=== PATIENT | female | born 1945 | race Caucasian/White ===

== ENCOUNTER 2020-04-13 15:37 | Inpatient (IN) | payer MEDICARE ==
[~2020-04-13 15:37] MED LIST: ACTOS15 MG PO; ALLOPURINOL 10100 MG PO; CEFDINIR300 MG PO; CIPROFLOXACIN500 M1 PO; COMPAZINE 5MG TA5 MG PO; ELAVIL50 MG PO; GABAPENTIN300 MG PO; GLIPIZIDE 5 MG (5 MG PO; LASIX20 MG PO; LASIX40 MG PO; LEVOTHYROXINE75 MC1 PO; LIPITOR 10MG TA10 MG PO; LOPRESSOR25 MG PO; METFORMIN HCL500 M3 PO; PRAMIPEXOLE ER3 MG PO; VENLAFAXINE HC150 MG PO; VENLAFAXINE HCL75 M1 PO; VOLTAREN **OUT50 MG PO; XARELTO15 MG PO; XARELTO20 MG PO
[2020-04-13 16:59] LABS: BASOPHIL 0.4 % (0-2); EOSINOPHIL 1.8 % (0-7); HCT 44.4 % (37.0-47.0); HGB 14.2 g/dl (12.5-16.0); MCH 28.7 pg (25.0-31.0); MCV 89.9 fL (78.0-100.0); MPV 9.7 fL (6.0-9.5); NRBC 0; PLT 327 K/uL (150-400); RBC 4.94 M/uL (4.20-5.40); RDW 13.4 % (11.5-14.0); WBC 10.5 K/uL (4.0-10.5)
[2020-04-13 17:17] LABS: INR 1.2 (0.9-1.2); PROTHROMBIN TIME 14.4 SECONDS (11.4-13.6); PTT 28.1 SECONDS (22.2-34.7)
[2020-04-13 17:18] LABS: D-DIMER 0.92 ug/mLFEU (0.00-0.41)
[2020-04-13 17:37] LABS: ALBUMIN 3.4 g/dL (3.4-5.0); BILIRUBIN - TOTAL 0.3 mg/dL (0.2-1.0); C-REACTIVE PROTEIN 3.1 mg/dL (<=0.90); CREATININE 0.74 mg/dL (0.51-0.95); GLOBULIN (CALCULATION) 3.5 g/dL; LACTIC ACID 1.9 mmol/L (0.4-1.9); POTASSIUM 4.5 mmol/L (3.5-5.1); TOTAL PROTEIN 6.9 g/dL (6.4-8.2)
--- NOTE | 2020-04-13 23:31 | NUR ---
PT ARRIVED TO TCU, PT WAS ANXIOOUS AT FIRST BUT HAS APPEARED TO HAVE SETTLED DOWN SOME. PT KEEPS ASKING FOR SLEEPING MEDICATION, I HAVE STATED WE ARE AWAITING THE DR TO SEE HER. WILL CONTINUE TO MONITOR
[2020-04-13] MEDS ORDERED: XARELTO10 MG PO (23:35)
[2020-04-13] MEDS ORDERED: LOPRESSOR25 MG PO (23:36)
[2020-04-13] MEDS ORDERED: MAG-OXIDE 400M400 MG PO (23:36)
[2020-04-13] MEDS ORDERED: MIRAPEX0.25 MG PO (23:37)
[2020-04-13] MEDS ORDERED: COMPAZINE10 MG PO (23:38)
[2020-04-13] MEDS ORDERED: ALLOPURINOL100 MG PO (23:38)
[2020-04-13] MEDS ORDERED: TRAZODONE HCL150 MG PO (23:40)
[2020-04-13] MEDS ORDERED: GLUCOTROL5 MG PO (23:40)
[2020-04-13] MEDS ORDERED: NEURONTIN300 MG PO (23:41)
[2020-04-13] MEDS ORDERED: VENLAFAXINE HC150 M1 PO (23:45)
[2020-04-13] MEDS ORDERED: MELATONIN5 M2 PO (23:48)
[2020-04-13] MEDS ORDERED: PIOGLITAZONE HC15 MG PO (23:48)
[2020-04-13] MEDS ORDERED: VENLAFAXINE HCL75 M2 PO (23:49)
[2020-04-13] MEDS ORDERED: SYNTHROID75 MCG PO (23:50)
[2020-04-13] MEDS ORDERED: VOLTAREN **OUT50 MG PO (23:51)
[2020-04-13] MEDS ORDERED: ELAVIL50 MG PO (23:51)
[2020-04-13] MEDS ORDERED: METFORMIN HCL500 MG PO (23:51)
[2020-04-13] MEDS ORDERED: VITAMIN D310 MC4 PO (23:52)
[2020-04-14 04:07] LABS: BASOPHIL 0.6 % (0-2); EOSINOPHIL 2.3 % (0-7); HCT 40.7 % (37.0-47.0); HGB 13.1 g/dl (12.5-16.0); LYMPHOCYTE 20.2 % (15-48); MCH 28.7 pg (25.0-31.0); MCHC 32.2 g/dL (32.0-36.0); MCV 89.3 fL (78.0-100.0); MONOCYTE 6.6 % (0-12); MPV 10.2 fL (6.0-9.5); NEUTROPHIL 69.2 % (41-80); NRBC 0; PLT 290 K/uL (150-400); RBC 4.56 M/uL (4.20-5.40); RDW 13.5 % (11.5-14.0); WBC 11.4 K/uL (4.0-10.5)
[2020-04-14 04:13] LABS: INR 1.24 (0.9-1.2); PROTHROMBIN TIME 14.8 SECONDS (11.4-13.6)
[2020-04-14 04:33] LABS: ALBUMIN 2.9 g/dL (3.4-5.0); BILIRUBIN - TOTAL 0.3 mg/dL (0.2-1.0); CREATININE 0.74 mg/dL (0.51-0.95); GLOBULIN (CALCULATION) 3.5 g/dL; MAGNESIUM 1.3 mg/dL (1.8-2.4); TOTAL PROTEIN 6.4 g/dL (6.4-8.2)
--- NOTE | 2020-04-14 04:55 | NUR ---
DR JUSTIN NOTIFIED OF PT MAGNESIUM LEVEL OF 1.3, SHE HAS ORDERED SOME MAG IV
--- NOTE | 2020-04-15 03:41 | NUR ---
PORTFOLIO ACCOUNTANT NOTIFIED OF URINE OUTPUT BEING 150 ML THIS AM, SHE STATED TO CONTINUE TO MONITOR.
[2020-04-15 06:27] LABS: BASOPHIL 0.5 % (0-2); EOSINOPHIL 2.2 % (0-7); HCT 41.2 % (37.0-47.0); MCH 28.8 pg (25.0-31.0); MCHC 31.6 g/dL (32.0-36.0); MCV 91.2 fL (78.0-100.0); MONOCYTE 5.5 % (0-12); MPV 10.1 fL (6.0-9.5); NEUTROPHIL 76.2 % (41-80); NRBC 0; PLT 310 K/uL (150-400); RBC 4.52 M/uL (4.20-5.40); RDW 13.6 % (11.5-14.0); WBC 12.5 K/uL (4.0-10.5)
[2020-04-15 06:53] LABS: PRO-BNP 2895 pg/mL (<450)
[2020-04-15 07:03] LABS: CREATININE 1.26 mg/dL (0.51-0.95); MAGNESIUM 1.8 mg/dL (1.8-2.4); POTASSIUM 4.8 mmol/L (3.5-5.1)
[2020-04-15] MEDS ORDERED: COREG 3.125M3.125 MG PO (09:39)
[2020-04-15] MEDS ORDERED: ZESTRIL5 MG PO (09:39)
[2020-04-15] MEDS ORDERED: POTASSIUM CHLO10 MEQ PO (09:39)
[2020-04-15] MEDS ORDERED: BUMEX1 MG PO (09:39)
--- NOTE | 2020-04-15 15:41 | NUR ---
PATIENT TO BE DISCHARGED HOME. WILL FOLLOW UP WITH [employer] OPERATOR HELPER FOR CONTINUING CARE OF DIABETIC FOOT ULCER.
== END 2020-04-15 16:10 | disposition home or self-care (01) | DRG 291 ==
LOC: FER 15:37 → FTCU 20:40
PROVIDERS: Emergency Medicine; Internal Medicine; Internal Medicine Cardiovascular Disease; ADMIT Internal Medicine
DX: I11.0 Hypertensive heart disease with heart failure (principal); J96.01 Acute respiratory failure with hypoxia; I50.23 Acute on chronic systolic (congestive) heart failure; E78.5 Hyperlipidemia, unspecified; Z20.822 Contact with and (suspected) exposure to COVID-19; E11.51 Type 2 diabetes mellitus with diabetic peripheral angiopathy without gangrene; F41.9 Anxiety disorder, unspecified; E11.65 Type 2 diabetes mellitus with hyperglycemia; F32.9 Major depressive disorder, single episode, unspecified; K21.9 Gastro-esophageal reflux disease without esophagitis; Z86.711 Personal history of pulmonary embolism; Z79.01 Long term (current) use of anticoagulants; Z90.49 Acquired absence of other specified parts of digestive tract; Z90.710 Acquired absence of both cervix and uterus; E03.9 Hypothyroidism, unspecified; E83.42 Hypomagnesemia
CPT/HCPCS: 36415; 36600; 71275; 80048; 80053; 82728; 82803; 83036; 83605; 83615; 83735; 83880; 84100; 84145; 84443; 84484; 85025; 85379; 85610; 85730; 86140; 93005; 94660; 96374; 96375; 96376; J1940; J2060; J2270; J3360; J3475; Q9967; U0002

== ENCOUNTER 2020-07-11 20:03 | Emergency (ER) | payer MEDICARE ==
[~2020-07-11 20:03] MED LIST changes: +ALLOPURINOL100 MG PO; +BUMEX1 MG PO; +COMPAZINE10 MG PO; +COREG 3.125M3.125 MG PO; +GLUCOTROL5 MG PO; +MAG-OXIDE 400M400 MG PO; +MELATONIN5 M2 PO; +METFORMIN HCL500 MG PO; +MIRAPEX0.25 MG PO; +NEURONTIN300 MG PO; +PIOGLITAZONE HC15 MG PO; +POTASSIUM CHLO10 MEQ PO; +SYNTHROID75 MCG PO; +TRAZODONE HCL150 MG PO; +VENLAFAXINE HC150 M1 PO; +VENLAFAXINE HCL75 M2 PO; +VITAMIN D310 MC4 PO; +XARELTO10 MG PO; +ZESTRIL5 MG PO
[2020-07-11 20:58] LABS: BASOPHIL 0.4 % (0-2); EOSINOPHIL 3.1 % (0-7); HCT 39.4 % (37.0-47.0); HGB 13.1 g/dl (12.5-16.0); LYMPHOCYTE 19.8 % (15-48); MCH 29.4 pg (25.0-31.0); MCHC 33.2 g/dL (32.0-36.0); MCV 88.5 fL (78.0-100.0); MONOCYTE 6.1 % (0-12); NEUTROPHIL 69.7 % (41-80); NRBC 0; PLT 293 K/uL (150-400); RBC 4.45 M/uL (4.20-5.40); RDW 13.6 % (11.5-14.0); WBC 9.1 K/uL (4.0-10.5)
[2020-07-11 21:15] LABS: ALBUMIN 3.2 g/dL (3.4-5.0); BILIRUBIN - TOTAL 0.1 mg/dL (0.2-1.0); BUN/CREAT RATIO (CALC) 27.9 RATIO; CREATININE 0.68 mg/dL (0.51-0.95); GLOBULIN (CALCULATION) 3.3 g/dL; POTASSIUM 4.2 mmol/L (3.5-5.1); TOTAL PROTEIN 6.5 g/dL (6.4-8.2)
[2020-07-11] MEDS ORDERED: VIBRAMYCIN100 MG PO (22:25)
[2020-07-11] MEDS ORDERED: NORCO 5-325 TA1 EACH PO (22:25)
== END 2020-07-11 22:50 | disposition home or self-care (01) ==
LOC: FER 20:03
PROVIDERS: Emergency Medicine Emergency Medical Services
DX: L03.115 Cellulitis of right lower limb (principal); M79.661 Pain in right lower leg; R60.0 Localized edema; E11.9 Type 2 diabetes mellitus without complications; I10 Essential (primary) hypertension; Z79.01 Long term (current) use of anticoagulants
CPT/HCPCS: 36415; 73630; 80053; 85025; 85379; 86140; J2270; J2405